=== PATIENT | male | born 1930 | race Two or more races ===

== ENCOUNTER → 2017-02-10 | Outpatient (CLI) | payer BC | LOC: BRMIMAGING 13:13 | PROVIDERS: ATTEND Family Medicine | DX: M54.5 Low back pain (principal) | CPT/HCPCS: 72080-PO ==

== ENCOUNTER → 2017-07-06 | Outpatient (CLI) | payer BC | LOC: BRMIMAGING 12:21 | PROVIDERS: ATTEND Family Medicine | DX: M19.031 Primary osteoarthritis, right wrist (principal); M16.11 Unilateral primary osteoarthritis, right hip; M25.511 Pain in right shoulder; I70.90 Unspecified atherosclerosis | CPT/HCPCS: 73030-PO; 73110-PO; 73502-PO ==